=== PATIENT | male | born 1950 | race Caucasian/White ===

== ENCOUNTER 2018-03-19 12:52 | Emergency (ER) | payer MEDICARE ==
[~2018-03-19] VITALS: Ht 182.9 cm; Wt 65.5 kg
[2018-03-19 13:03] VITALS: BP 114/75
== END 2018-03-19 13:57 | disposition home or self-care (01) ==
LOC: ED 13:40
DX: B34.9 Viral infection, unspecified (principal)
CPT/HCPCS: 71046; 99284

== ENCOUNTER 2019-08-13 07:43 | Emergency (ER) | payer MEDICARE, MEDICAID ==
[~2019-08-13] VITALS: Ht 180.3 cm; Wt 68.5 kg
[2019-08-13 09:42] LABS: BASOPHILS # (AUTO) 0.04 x10^3/uL (0-0.1); BASOPHILS % (AUTO) 1 % (0-1); EOSINOPHILS % (AUTO) 3 % (1-7); LYMPHOCYTES # (AUTO) 1.86 x10^3/uL (1-3.4); LYMPHOCYTES % (AUTO) 31 % (22-44); MD NO; MEAN CORPUSCULAR HEMOGLOBIN 29.8 pg (27.5-34.5); MEAN CORPUSCULAR HGB CONC 33.3 g/dL (33.2-36.2); MEAN CORPUSCULAR VOLUME 89.6 fL (81-97); MEAN PLATELET VOLUME 8.8 fL (7.4-10.4); MONOCYTES # (AUTO) 0.56 x10^3/uL (0.2-0.8); MONOCYTES % (AUTO) 9 % (2-9); NEUTROPHILS # (AUTO) 3.31 x10^3/uL (1.8-6.8); NEUTROPHILS % (AUTO) 55 % (42-75); PLATELET COUNT 204 x10^3/uL (130-400); RED BLOOD COUNT 4.99 x10^6/uL (4.38-5.82); RED CELL DISTRIBUTION WIDTH 14.1 % (9.4-14.8)
[2019-08-13 09:52] LABS: ANION GAP 10 mmol/L (5-15); CALCIUM 8.9 mg/dL (8.5-10.1); CHLORIDE 104 mmol/L (98-107)
[2019-08-13 10:31] LABS: HCT (SEDRATE) 44.7 % (39.2-51.8)
[2019-08-13 11:24] VITALS: BP 138/74
== END 2019-08-13 11:26 | disposition home or self-care (01) ==
LOC: ED 08:23
DX: M79.672 Pain in left foot (principal); R93.89 Abnormal findings on diagnostic imaging of other specified body structures
CPT/HCPCS: 36415; 80048; 82040; 85025; 85651; 99284

== ENCOUNTER 2020-05-01 10:21 | Emergency (ER) | payer MEDICARE, MEDICAID ==
[~2020-05-01] VITALS: Ht 180.3 cm; Wt 68.2 kg
[2020-05-01 10:24] VITALS: BP 127/84
--- NOTE | 2020-05-01 10:34 | NUR ---
UA CUP GIVEN
--- NOTE | 2020-05-01 10:53 | NUR ---
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
[2020-05-01 11:12] LABS: MICROSCOPIC NOT IND
[2020-05-01 11:27] LABS: BASOPHILS % (AUTO) 1 % (0-1); EOSINOPHILS % (AUTO) 6 % (1-7); LYMPHOCYTES % (AUTO) 33 % (22-44); MEAN CORPUSCULAR HGB CONC 33.8 g/dL (33.2-36.2); MEAN PLATELET VOLUME 8.9 fL (7.4-10.4); MONOCYTES % (AUTO) 9 % (2-9); NEUTROPHILS % (AUTO) 50 % (42-75); PLATELET COUNT 203 x10^3/uL (130-400); RED BLOOD COUNT 4.89 x10^6/uL (4.38-5.82); RED CELL DISTRIBUTION WIDTH 14.4 % (9.4-14.8)
[2020-05-01 11:38] LABS: CALCIUM 8.9 mg/dL (8.5-10.1); CREATININE 0.87 mg/dL (0.7-1.3)
[2020-05-01 11:47] LABS: MD SCAN
[2020-05-01 11:51] LABS: ANION GAP 3 mmol/L (5-15); CHLORIDE 106 mmol/L (98-107)
== END 2020-05-01 12:19 | disposition home or self-care (01) ==
LOC: ED 11:11
DX: R30.0 Dysuria (principal); R35.0 Frequency of micturition
CPT/HCPCS: 36415; 80048; 81003; 82040; 85025; 99283